=== PATIENT | male | born 1960 | race Caucasian/White ===

== ENCOUNTER 2025-05-24 09:57 | Outpatient (CLI) | payer MEDICAID, SELFPAY ==
[2025-05-24 17:04] LABS: Hematocrit 53.8 % (42.0-52.0); Hemoglobin 17.8 g/dL (14.1-18.0); Immature Granulocytes % 0.1 %; Mean Corpuscular HGB Conc 33.1 g/dL (31.8-35.4); Mean Corpuscular Hemoglobin 31.8 pg (27.0-31.2); Mean Corpuscular Volume 96.1 fl (80-94); Nucleated Red Blood Cells % 0 %; Platelet Count 236 K/mm3 (142-424); Red Blood Count 5.60 M/mm3 (4.60-6.20); Red Cell Distribution Width-SD 51.2 fL; White Blood Count 7.2 K/mm3 (4.8-10.8)
[2025-05-24 17:29] LABS: Albumin Level 4.5 g/dl (3.5-5.0); Chloride 106 mmol/L (98-107); Sodium 139 mmol/L (136-145)
[2025-05-24 17:30] LABS: Potassium 4.7 mmoL/L (3.5-5.1)
[2025-05-24 17:32] LABS: Alanine Aminotransferase 24 U/L (12-78); Aspartate Amino Transferase 29 U/L (17-59); Blood Urea Nitrogen 15 mg/dl (9-20); Creatinine,Serum 0.90 mg/dl (0.66-1.25); Estimated Glomerular Filt Rate 86 ml/min (>60); GFR (African American) 103 ML/MIN (>60)
[2025-05-24 18:04] LABS: Thyroid Stimulating Hormone 1.84 uIU/mL (0.465-4.68)
[2025-05-24 18:13] LABS: Albumin/Globulin Ratio 2.0 (1.1-1.8); Alkaline Phosphatase 62 U/L (38-126); Anion Gap 12.7 mEq/L (5-15); Bilirubin,Total 0.7 mg/dl (0.2-1.3); Calcium 9.6 mg/dl (8.4-10.2); Carbon Dioxide 25 mmol/L (22.0-30.0); Cholesterol 116 mg/dl (140-200); Globulin 2.3 g/dL (1.3-3.2); HDL Cholesterol 40 mg/dl (40-60); Total Protein,Serum 6.8 g/dl (6.3-8.2); Triglycerides 84 mg/dl (30-150)
[2025-05-24 18:23] LABS: Hepatitis C Ab Qual. W/ RFX NEGATIVE (Negative)
[2025-05-24 19:05] LABS: Glucose 45 mg/dl (74-100)
--- OUTSIDE RECORDS SUMMARY | 2025-05-25 10:00 | XMS_ITS | Encounter Summary ---
Author Organization Healthcare Address [address] [id number] Care Team Providers Care Garment Parts Cutter Machine Name Role Phone Norma Pitts MD Primary Care Provider [phone] Reason for Visit * Reason Comments Med Refill Encounter Details Date Type Department Care Team (Late st Contact Info) Description 03/31/2025 Refill [facility] [place] [address] Norma Pitts MD [address] [place] [address] History of ischemic stroke Social History Tobacco Use Types Packs/Day Years Used Date Smoking Tobacco: Former Cigarettes 2014 Passive Smoke Exposure: Never Smokeless Tobacco: Never Humiliation, Afraid, Rape, and Kick questionnair e Answer Date Recorded Within the last year, have y ou been afraid of your partner or ex-partner? No 04/20/2024 Within the last year, have y ou been humiliated or emotionally abused in other ways by your partner or ex-partner? No Within the last year, have y ou been kicked, hit, slapped, or otherwise physically hurt by your partner or ex-partner? No 04/20/2024 Within the last year, have y ou been raped or forced to have any kind of sexual activity by your partner or ex-partner? No 04/20/2024 PHQ-2 Answer Date Recorded Patient Health Questionnaire-2 Score 0 04/20/2024 Hunger Vital Sign Answer Date Recorded Within the past 12 months, y ou worried that your food would run out before you got the money to buy more. Never true 04/20/20 24 Within the past 12 months, t he food you bought just didn't last and you didn't have money to get more. Never true 04/20/2024 PRAPARE - Transportation Answer Date Re corded In the past 12 months, has l ack of transportation kept you from medical appointments or from getting medications? No 04/10 In the past 12 months, has l ack of transportation kept you from meetings, work, or from getting things needed for daily living? No 04/20/2024 Housing Stability Vital Sign Answer Margarito e Recorded In the last 12 months, was t here a time when you were not able to pay the mortgage or rent on time? No 04/20/2024 [address] of Places Lived in the Last Year Not on f ile 04/20/2024 In the last 12 months, was t here a time when you did not have a steady place to sleep or slept in a fpc (including now)? No 04/20/2024 Safety and Environment Answer Date Noam rded Do you worry that your child may have been physically abused? No 04/20/2024 Do you worry that your child may have been sexua lly abused? No 04/20/2024 Are there any guns kept in o r around your home or where your child spends time? No 04/20/2024 Guns Unloaded or Locked Away Not on file 05/2024 Utilities Answer Date Recorded In the past 12 months has e electric, gas, oil, or water company threatened to shut off services in your home? No 04/20/2024 PHQ-2A Answer Date Recorded Patient Health Questionnaire-2 Score 0 04/01/2023 Sex and Gender Information Value Date Recorded Sex Assigned at Not on file Legal Sex Male 8:48 PM EDT Gender Identity Not on file Sexual Orientation Not on file documented as of this encounter Miscellaneous Notes * Telephone Encounter - Ria Garza PharmD - 04/03/2025 1:35 PM EDT 1 medication(s) has been approved per protocol. Please keep upcoming appointment for additional refills. Medications have been pended for refill atupcoming appointment. documented in this encounter Plan of Treatment Not on file documented as of this encounter Visit Diagnoses Diagnosis History of ischemic stroke documented in this encounter Additional Health Concerns Assessment Noted Time A fall risk assessment has been complete d for the patient 05/12/2021 9:22 AM EDT A Body Mass Index follow-up plan has been documented for the patient 04/20/2024 10:09 AM EDT documented as of this encounter Care Teams Garment [employer] Cutter Machine Relationship Specialty Start Date End Date Norma Pitts MD [address] [place] [id number] PCP - General 11/21/20 documented as of this encounter
--- OUTSIDE RECORDS SUMMARY | 2025-05-25 10:00 | XMS_ITS | Clinical Summary ---
Author Organization [facility] Address [address] [place] [address] Care Team Providers Care Bead Wrapper Name Role Phone Norma Pitts MD Primary Care Provider [phone] Allergies Active Allergy Reactions Criticality Noted Date Comments Morphine Unknown - Patient st ates they do not know rxn details Low 04/01/2023 Oxycodone Other - please docum ent in the comment field Medium 04/01/2023 Causes high blood pressure Medications Ibuprofen 200 MG capsule 9 Active clopidogrel (Plavix) 75 MG tabletIndications :History of ischemic stroke Take 1 tablet (75 mg) by mouth 1 (one) time each day. 90 tablet 3 4 Active hydroCHLOROthiazi de (HYDRODiuril) 25 MG tabletIndications :Essential (primary) hypertension Take 1 tablet (25 mg) by mouth 1 (one) time each day. 90 tablet 3 4 Active lisinopril 40 MG tabletIndications :Essential (primary) hypertension Take 1 tablet (40 mg) by mouth 1 (one) time each day. as directed 90 tablet 3 4 Active amLODIPine (Norvasc) 2.5 MG tabletIndications :Essential (primary) hypertension Take 1 tablet (2.5 mg) by mouth 1 (one) time each day. 90 tablet 3 4 Active esomeprazole (NexIUM) [address] capsuleIndication s:Parsons's esophagus without dysplasia Take 1 capsule (40 mg) by mouth 1 (one) time each day before breakfast. Do not open capsule. 90 capsule 3 4 Active atorvastatin (Lipitor) 80 MG tabletIndications :History of ischemic stroke Take 1 tablet by mouth daily. 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 04/01/2023 HTN (hypertension) 10/16/2018 04/01/2023 Middle cerebral artery stenosis 03/03/2017 04/01/2023 Acute ischemic stroke 02/08/2017 04/01/2023 Resolved Problems Problem Noted Date Diagnosed Date Resolved Date Nocturia 06/03/2020 04/01/2023 03/31/2025 Encounters Date Type Department Care Team Description 03/31/2025 Refill [facility] [address] [place] [address] Norma Pitts MD History of ischemic stroke 02/28/2025 Refill [facility] [address] [place] [address] Norma Pitts MD Essential (primary) hypertension from Last 3 Months Immunizations Immunization Administration Dates Next Due Tdap 07/11/2019 Family History Medical History Relation Name Comments Parkinson Disease Father Relation Name Status Comments Father Social History Tobacco Use Types Packs/Day Years Used Date Smoking Tobacco: Former Cigarettes 2 - 2014 Passive Smoke Exposure: Never Smokeless Tobacco: Never Tobacco Cessation:Counseling Given: Yes Humiliation, Afraid, Rape, and Kick questionnair e [...] money to buy more. Never true 04/20/20 Within the past 12 months, t he [...] place to sleep or slept in a long-term (including now)? No 04/20/2024 Safety and Environment [...] Recorded In the past 12 months has th e electric, gas, oil, or water company threatened to shut off services in your home? No 04/20/2024 PHQ-2A Answer Date Recorded Patient Health Questionnaire-2 Score 0 04/01/2023 Sex and Gender Information Value Date Recorded Sex Assigned at Not on file Legal Sex Male 8:48 PM EDT Gender Identity Not on file Sexual Orientation Not on file Last Filed Vital Signs Vital Sign Reading Time Taken Comments Blood Pressure 120/80 04/20/2024 9:43 AM EDT Pulse 79 04/20/2024 9:43 AM EDT Temperature 36.7 C (98 F) 04/20/2024 9:43 AM EDT Respiratory Rate 18 04/20/2024 9:43 AM EDT Oxygen Saturation 96% 04/20/2024 9:43 AM EDT Inhaled Oxygen Concentration - - Weight 83.6 kg (184 lb 3.2 oz) 04/20/2024 9:43 A M EDT Height 177.8 cm (5' 10 ) 04/20/2024 9:43 AM EDT Body Mass Index 26.43 04/20/2024 9:43 AM EDT Plan of Treatment Health Maintenance Due Date Last Done Comments [facility]-HIV Screening 1962 [facility]-Infant/Child/Adol SDOH Screenings 1962 [facility]- SDOH Screenings 1980 [facility]-Adult SDOH Screenings 1980 CT Colonography 2007 FIT-DNA 2007 FIT 2007 FOBT 2007 Sigmoidoscopy 2007 [facility]-Pneumococcal Vaccine: 50+ Years (1 of 1 - PCV) 2012 [facility]-Zoster Vaccines (1 of 2) 2012 [id number] Vaccine (1 - season) 2025 [facility]-Influenza Vaccine (#1) 2025 [facility]-Depression Screening 04/20/2025 04/20/2024 Colonoscopy 09/01/2027 09/01/2022, 01/08, 01/23/2018, Additional history exists [facility]-Colorectal Cancer Screening 09/01/2027 [facility]-DTaP,Tdap,and Td Vaccines (2 - Td or Tdap) 07/11/2029 07/11/2019 [facility]-RSV Vaccine: 60+ Years or (1 - 1-dose 75+ series) 2037 [facility]-Hepatitis C Screening Completed 04/01/2023 [facility]-Obesity Intervention Completed 024, 12/13/2023, 04/01/2023, Additional history exists HPV Vaccines Aged Out No longer eligi ble based on patient's age to complete this topic [facility]-HIB Vaccines Aged Out No longer e ligible based on patient's age to complete this topic [facility]-Hepatitis A Vaccines Aged Out No longer eligible based on patient's age to complete this topic [facility]-IPV Vaccines Aged Out No longer e ligible based on patient's age to complete this topic [facility]-Rotavirus Vaccines Aged Out No lo nger eligible based on patient's age to complete this topic Procedures Procedure Name Priority Date/Time Associated Diagnosis Comments HEPATITIS C ANTIBODY W/REFLEX TO HCV QUANT PCR Routine 04/01/2023 9:04 AM EDT Routine general medical examination at a health care facility COLONOSCOPY Routine 09/01/2022 9:31 AM EST Polyp of colon, unspecified part of colon, unspecified type from Last 3 Months or Most Recently Relevant to Health Maintenance Results * Hepatitis C Antibody w/Reflex to HCV Quant PCR (04/01/2023 9:04 AM EDT) Hepatitis C Antibody Negative Negative 04/01/2023 1:23 PM EDT [facility] Blood Venous blood specimen / Unknown Venipuncture / Unknown 04/01/2023 9:04 AM EDT 04/01/2023 9:04 AM EDT us Norma Pitts MD LAB BLOOD ORDERABLES Final Res ult Performing Organization Address City/State/[facility] Co de Phone Number [facility] [address] [place] [address] * Colonoscopy (09/01/2022 9:31 AM EST) Anatomical Region Laterality Modality Endoscopy Narrative 09/01/2022 12:30 PM EST Table formatting from the original result was not included. Impression Overall Impression: One 6 mm sessile Mela Is polyp in the transverse colon; completely removed by cold snare Two 2 mm Mela Is polyps in the rectosigmoid; performed complete removal by cold forceps Recommendation Await pathology results - Return home once discharge criteria met. - May resume previous diet. - Await pathology results. - Repeat colonoscopy to be determined by pathology. - Return to referring provider. - Discussed results with patient/family. Indication Polyp of colon, unspecified part of colon, unspecified type Screen for Colorectal Cancer, Average Risk Medications See anesthesia record for anesthesia administered medications. Staff Staff Role ALEXANDRIA Ascencio CRNA, MD Proceduralist Poornima Holland MD Proceduralist Christian Florian MD Anesthesiologist Piter Philip No role selected Flash Mcmahon Endo Nurse Sonali Espino, RN No role selected Unknown Endo Nurse 1 Endo Nurse Preprocedure A history and physical has been performed, and patient medication allergies have been reviewed. The patient's tolerance of previous anesthesia has been reviewed. The risks and benefits of the procedure and the sedation options and risks were discussed with the patient. All questions were answered and informed consent obtained. Details of the Procedure The patient underwent monitored anesthesia care, which was administered by an anesthesia professional. The patient's blood pressure, heart rate, level of consciousness, respirations and oxygen were monitored throughout the procedure. A digital rectal exam was performed. A perianal exam was performed. The scope was introduced through the anus and advanced to the cecum. Retroflexion was performed in the rectum. The quality of bowel preparation was evaluated using the [place] Bowel Preparation Scale with scores of: right colon = 2, transverse colon = 2, left colon = 2. The total BBPS score was 6. Bowel prep was adequate. The patient experienced no blood loss. The procedure was not difficult. The patient tolerated the procedure well. There were no apparent complications. Attestation I was present for the entire procedure Events Procedure Events Event Event Time ENDO SCOPE IN TIME 09/01/2022 8:48 AM ENDO SCOPE OUT TIME 09/01/2022 9:05 AM ENDO SCOPE IN TIME 09/01/2022 9:08 AM ENDO CECUM REACHED 09/01/2022 9:13 AM ENDO SCOPE OUT TIME 09/01/2022 9:29 AM Specimens ID Type Source Tests Collected by Time A : duodenum biopsies Tissue Duodenum SURGICAL PATHOLOGY EXAM Christian Pitts MD 09/01/2022 0853 B : 39 cm biopsies esophagus Tissue Esophagus SURGICAL PATHOLOGY EXAM Christian Pitts MD 09/01/2022 0856 C : 37 cm biopsies esophagus Tissue Esophagus SURGICAL PATHOLOGY EXAM Christian Pitts MD 09/01/2022 0857 D : 35 cm biopsies esophagus Tissue Esophagus SURGICAL PATHOLOGY EXAM Christian Pitts MD 09/01/2022 0859 E : polyp Tissue Transverse Colon SURGICAL PATHOLOGY EXAM Christian Pitts MD 09/01/2022 0921 F : Rectosigmoid polyps Tissue Other (specify site) SURGICAL PATHOLOGY EXAM Christian Pitts MD 09/01/2022 0928 Findings One 6 mm sessile Mela Is polyp in the transverse colon; completely removed en bloc by cold snare and retrieved specimen Two 2 mm Mela Is polyps in the rectosigmoid; performed complete en bloc removal by cold forceps biopsy Norma Pitts MD GI PROCEDURE ORDERABLES Final Result from Last 3 Months or Most Recently Relevant to Health Maintenance Insurance Care Teams Bead Wrapper Relationship Specialty Start Date End Date Norma Pitts MD [address] [place] [phone] PCP - General 11/21/20
[2025-05-28 02:37] LABS: Hepatitis B Surface Antigen Negative (Negative)
== END 2025-05-24 23:59 | disposition home or self-care (01) ==
LOC: LAB.DROPOF 05-25 09:58
PROVIDERS: PCP Nurse Practitioner Family; Visit Provider Nurse Practitioner Family
DX: E78.5 Hyperlipidemia, unspecified (principal); I10 Essential (primary) hypertension; Z86.73 Personal history of transient ischemic attack (TIA), and cerebral infarction without residual deficits; Z11.4 Encounter for screening for human immunodeficiency virus [HIV]; Z11.59 Encounter for screening for other viral diseases
CPT/HCPCS: 80053; 80061; 84443; 85025; 86803; 87340; 87389